=== PATIENT | female | born 1945 | race Caucasian/White ===

== ENCOUNTER 2017-11-10 17:42 | Inpatient (IN) ==
[2017-11-10] MEDS ORDERED: HYDROmorphone 2 MG/1 ML VIAL IV STA (18:12)
[2017-11-10] MEDS ORDERED: ASPIRIN 325 MG TABLET PO STA (18:12)
[2017-11-10] MEDS ORDERED: NITROGLYCERIN 2% OINT 1 INCH/GM PACK TOP STA (18:12)
[2017-11-10] MEDS ORDERED: ONDANSETRON 4 MG/2 ML VIAL IV STA (18:12)
[2017-11-10 18:40] LABS: Basophils % 0.3 % (0.0-0.8); Eosinophils # 0.2 10*3/uL (0.0-0.87); Eosinophils % 2.7 % (0.00-10.9); Hematocrit 41.7 VOL% (35.7-47.0); Hemoglobin 13.6 GM/DL (12.0-16.0); Immature Granulocytes % 0.2 %; Immature Granulocytes Absolute 0.01 #; Lymphocytes # 2.3 10*3/uL (1.4-4.0); Lymphocytes % 38.8 % (21.3-54.2); Mean Corpuscular HGB Conc 32.6 GM/DL (32-36); Mean Corpuscular Hemoglobin 30 PG (27-34); Mean Corpuscular Volume 93.1 FL (87-102); Mean Platelet Volume 10.8 FL (9.6-12.0); Monocytes # 0.5 10*3/uL (0.11-0.8); Monocytes % 8.2 % (1.7-12.7); Neutrophils # 2.9 10*3/uL (1.4-7.4); Neutrophils % 49.8 % (38.7-73.9); Platelet Count 207 T/CUMM (130-400); Red Blood Count 4.48 MC/CUMM (3.8-5.5); Red Cell Distribution Width 13.6 % (9.3-17.3); White Blood Count 5.8 T/CUMM (4-12)
[2017-11-10 18:55] LABS: INR 1.1
[2017-11-10 19:00] LABS: Alanine Aminotransferase 31 U/L (13-56); Albumin 3.5 G/DL (3.4-5.0); Alkaline Phosphatase 89 U/L (45-117); Aspartate Amino Transferase 23 U/L (0-37); Bilirubin,Total < 0.39 MG/DL (0.2-1.0); Blood Urea Nitrogen 10 MG/DL (7-18); Calcium 8.4 MG/DL (8.5-10.1); Glucose 115 MG/DL (74-106); Osmolality,Calculated 282.1 MOS/KG (273-304); Potassium 4.5 MMOL/L (3.5-5.1); Sodium 142 MMOL/L (136-145); Total Protein 6.6 G/DL (6.4-8.3)
[2017-11-10] MEDS ORDERED: MAGNESIUM SULF RIDER 4 GM in PREMIX 1 EACH IV PRN (22:08)
[2017-11-10] MEDS ORDERED: NITROGLYCERIN SL 0.4 MG TABLET SL PRN (22:08)
[2017-11-10] MEDS ORDERED: ELUXADOLINE 100 MG PO PRN (22:08)
[2017-11-10] MEDS ORDERED: ONDANSETRON 4 MG/2 ML VIAL IV PRN (22:08)
[2017-11-10] MEDS ORDERED: GLUCAGON 1 MG VIAL IM PRN (22:08)
[2017-11-10] MEDS ORDERED: cycloSPORINE OPH EMUL 1 VIAL BOTH EYES PRN (22:08)
[2017-11-10] MEDS ORDERED: DEXTROSE 50% 25 GM/50 ML VIAL IV PRN (22:08)
[2017-11-10] MEDS ORDERED: SODIUM CHLORIDE 0.9% 1,000 ML IV SCH (22:08)
[2017-11-10] MEDS ORDERED: POTASSIUM CHLORIDE 20 MEQ TABLET PO PRN (22:08)
[2017-11-10] MEDS ORDERED: MAGNESIUM SULF RIDER 2 GM in PREMIX 1 EACH IV PRN (22:08)
[2017-11-10] MEDS ORDERED: ENOXAPARIN 80 MG/0.8 ML SYRINGE SUBCUT SCH (22:30)
[2017-11-11 01:17] LABS: Basophils % 0.4 % (0.0-0.8); Eosinophils # 0.2 10*3/uL (0.0-0.87); Eosinophils % 3.2 % (0.00-10.9); Hematocrit 38.9 VOL% (35.7-47.0); Hemoglobin 12.7 GM/DL (12.0-16.0); Immature Granulocytes % 0.5 %; Immature Granulocytes Absolute 0.03 #; Lymphocytes # 1.9 10*3/uL (1.4-4.0); Lymphocytes % 33.6 % (21.3-54.2); Mean Corpuscular HGB Conc 32.6 GM/DL (32-36); Mean Corpuscular Hemoglobin 31 PG (27-34); Mean Corpuscular Volume 94.6 FL (87-102); Mean Platelet Volume 10.9 FL (9.6-12.0); Monocytes # 0.6 10*3/uL (0.11-0.8); Neutrophils # 2.9 10*3/uL (1.4-7.4); Neutrophils % 52.3 % (38.7-73.9); Platelet Count 199 T/CUMM (130-400); Red Blood Count 4.11 MC/CUMM (3.8-5.5); Red Cell Distribution Width 13.6 % (9.3-17.3); White Blood Count 5.6 T/CUMM (4-12)
[2017-11-11 01:40] LABS: Alanine Aminotransferase 29 U/L (13-56); Albumin 3.1 G/DL (3.4-5.0); Alkaline Phosphatase 84 U/L (45-117); Aspartate Amino Transferase 20 U/L (0-37); Bilirubin,Total < 0.39 MG/DL (0.2-1.0); Blood Urea Nitrogen 11 MG/DL (7-18); Calcium 8.6 MG/DL (8.5-10.1); Cholesterol 77 MG/DL (50-200); Glucose 105 MG/DL (74-106); HDL Cholesterol 42 MG/DL (40-60); Osmolality,Calculated 279.3 MOS/KG (273-304); Potassium 4.3 MMOL/L (3.5-5.1); Risk Ratio 1.83; Sodium 141 MMOL/L (136-145); Total Protein 6.4 G/DL (6.4-8.3); Triglycerides 130 MG/DL (2-150)
[2017-11-11] MEDS ORDERED: diphenhydrAMINE CAP 25 MG CAPSULE PO ONE (07:33)
[2017-11-11] MEDS ORDERED: DIAZEPAM 5 MG TABLET PO ONE (07:33)
[2017-11-11] MEDS: INSULIN REGULAR 100 UNIT/ML SUBCUT SCH ×4 (07:41→20:57)
[2017-11-11] MEDS ORDERED: PANTOPRAZOLE 40 MG TABLET PO SCH (09:00)
[2017-11-11] MEDS: MONTELUKAST 10 MG TABLET PO SCH (12:08)
[2017-11-11] MEDS: MAGNESIUM GLUCONATE 500 MG TABLET PO SCH (12:08)
[2017-11-11] MEDS: SERTRALINE 100 MG TABLET PO SCH (12:08)
[2017-11-11] MEDS: ROSUVASTATIN 10 MG TABLET PO SCH (12:08)
[2017-11-11] MEDS: ASPIRIN EC 81 MG TABLET PO SCH (12:08)
[2017-11-11] MEDS: PANTOPRAZOLE 40 MG TABLET PO SCH (12:08)
[2017-11-11] MEDS: CLOPIDOGREL 75 MG TABLET PO SCH (12:08)
[2017-11-11] MEDS ORDERED: LIDOCAINE 1% 20 ML VIAL ONE (12:35)
[2017-11-11] MEDS ORDERED: HEPARIN/NACL 0.9% 2 UNITS/ML 1,000 ML IV ONE (12:35)
[2017-11-11] MEDS ORDERED: MIDAZOLAM 2 MG/2 ML VIAL ONE (12:53)
[2017-11-11] MEDS ORDERED: fentaNYL 100 MCG/2 ML VIAL ONE (12:53)
[2017-11-11] MEDS ORDERED: ACETAMINOPHEN 325 MG TABLET PO PRN (13:18)
[2017-11-11] MEDS ORDERED: SODIUM CHLORIDE 0.9% 500 ML IV ONE (19:20)
[2017-11-11] MEDS ORDERED: SODIUM CHLORIDE 0.9% 1,000 ML IV ONE (19:34)
[2017-11-11] MEDS ORDERED: MORPHINE 4 MG/1 ML VIAL IV PRN (19:37)
[2017-11-11] MEDS ORDERED: SODIUM CHLORIDE 0.9% 250 ML IV ONE (19:40)
[2017-11-11 19:45] LABS: Basophils % 0.3 % (0.0-0.8); Eosinophils # 0.1 10*3/uL (0.0-0.87); Eosinophils % 1.1 % (0.00-10.9); Hematocrit 37.4 VOL% (35.7-47.0); Hemoglobin 12.1 GM/DL (12.0-16.0); Immature Granulocytes % 0.5 %; Immature Granulocytes Absolute 0.06 #; Lymphocytes # 3.9 10*3/uL (1.4-4.0); Mean Corpuscular HGB Conc 32.4 GM/DL (32-36); Mean Corpuscular Hemoglobin 31 PG (27-34); Mean Corpuscular Volume 95.4 FL (87-102); Mean Platelet Volume 10.8 FL (9.6-12.0); Monocytes % 7.4 % (1.7-12.7); Neutrophils % 60.7 % (38.7-73.9); Platelet Count 233 T/CUMM (130-400); Red Blood Count 3.92 MC/CUMM (3.8-5.5); Red Cell Distribution Width 13.6 % (9.3-17.3); White Blood Count 13.1 T/CUMM (4-12)
[2017-11-11 19:59] LABS: INR 1.1; Partial Thromboplastin Time 22.9 SECS (0-40)
[2017-11-11] MEDS: FEXOFENADINE 180 MG TABLET PO SCH (20:04)
[2017-11-11 20:05] LABS: Alanine Aminotransferase 26 U/L (13-56); Alkaline Phosphatase 77 U/L (45-117); Aspartate Amino Transferase 19 U/L (0-37); Bilirubin,Total < 0.39 MG/DL (0.2-1.0); Blood Urea Nitrogen 12 MG/DL (7-18); Calcium 8.7 MG/DL (8.5-10.1); Glucose 203 MG/DL (74-106); Osmolality,Calculated 284.4 MOS/KG (273-304); Potassium 4.5 MMOL/L (3.5-5.1); Sodium 140 MMOL/L (136-145)
[2017-11-12 04:11] LABS: INR 1.1; Partial Thromboplastin Time < 21.0 SECS (0-40)
[2017-11-12 04:42] LABS: Calcium 8.7 MG/DL (8.5-10.1); Osmolality,Calculated 283.3 MOS/KG (273-304); Potassium 4.9 MMOL/L (3.5-5.1)
[2017-11-12 05:33] LABS: Basophils % 0.1 % (0.0-0.8); Eosinophils # 0.1 10*3/uL (0.0-0.87); Eosinophils % 1.1 % (0.00-10.9); Hematocrit 36.7 VOL% (35.7-47.0); Hemoglobin 11.6 GM/DL (12.0-16.0); Immature Granulocytes % 0.4 %; Immature Granulocytes Absolute 0.03 #; Lymphocytes # 1.7 10*3/uL (1.4-4.0); Lymphocytes % 21.4 % (21.3-54.2); Mean Corpuscular HGB Conc 31.6 GM/DL (32-36); Mean Corpuscular Hemoglobin 31 PG (27-34); Mean Corpuscular Volume 96.6 FL (87-102); Mean Platelet Volume 10.7 FL (9.6-12.0); Monocytes # 0.7 10*3/uL (0.11-0.8); Monocytes % 8.5 % (1.7-12.7); Neutrophils # 5.4 10*3/uL (1.4-7.4); Neutrophils % 68.5 % (38.7-73.9); Platelet Count 206 T/CUMM (130-400); Red Cell Distribution Width 13.6 % (9.3-17.3); White Blood Count 7.9 T/CUMM (4-12)
[2017-11-12] MEDS: INSULIN REGULAR 100 UNIT/ML SUBCUT SCH ×4 (07:17→21:17)
[2017-11-12] MEDS ORDERED: ERGOCALCIFEROL 50,000 UNIT CAPSULE PO SCH (09:00)
[2017-11-12] MEDS: ROSUVASTATIN 10 MG TABLET PO SCH (09:30)
[2017-11-12] MEDS: SERTRALINE 100 MG TABLET PO SCH (09:31)
[2017-11-12] MEDS: MONTELUKAST 10 MG TABLET PO SCH (09:31)
[2017-11-12] MEDS: CLOPIDOGREL 75 MG TABLET PO SCH (09:31)
[2017-11-12] MEDS: NON-FORMULARY MEDICATION (Liraglutide [Victoza 2-Pak] 1.2 MG) SUBCUT SCH (09:31)
[2017-11-12] MEDS: ASPIRIN EC 81 MG TABLET PO SCH (09:31)
[2017-11-12] MEDS: FEXOFENADINE 180 MG TABLET PO SCH (09:31)
[2017-11-12] MEDS: PANTOPRAZOLE 40 MG TABLET PO SCH (09:31)
[2017-11-12] MEDS: MAGNESIUM GLUCONATE 500 MG TABLET PO SCH (09:31)
[2017-11-12] MEDS: NON-FORMULARY MEDICATION (Vit C/Vit E Ac/Lut/Copper/Zinc [Preservision Lutein Softgel] 1 E PO SCH (09:32)
[2017-11-13 05:10] LABS: Eosinophils # 0.1 10*3/uL (0.0-0.87); Eosinophils % 1.9 % (0.00-10.9); Hematocrit 31.3 VOL% (35.7-47.0); Hemoglobin 10.1 GM/DL (12.0-16.0); Immature Granulocytes % 0.4 %; Immature Granulocytes Absolute 0.02 #; Lymphocytes # 1.7 10*3/uL (1.4-4.0); Mean Corpuscular HGB Conc 32.3 GM/DL (32-36); Mean Corpuscular Hemoglobin 31 PG (27-34); Mean Corpuscular Volume 94.8 FL (87-102); Mean Platelet Volume 10.7 FL (9.6-12.0); Monocytes # 0.5 10*3/uL (0.11-0.8); Monocytes % 9.5 % (1.7-12.7); Neutrophils # 3.4 10*3/uL (1.4-7.4); Neutrophils % 59.2 % (38.7-73.9); Platelet Count 173 T/CUMM (130-400); Red Cell Distribution Width 13.4 % (9.3-17.3); White Blood Count 5.7 T/CUMM (4-12)
[2017-11-13 05:21] LABS: Calcium 8.2 MG/DL (8.5-10.1); Osmolality,Calculated 282.3 MOS/KG (273-304); Potassium 4.4 MMOL/L (3.5-5.1)
[2017-11-13] MEDS: INSULIN REGULAR 100 UNIT/ML SUBCUT SCH ×4 (08:38→22:33)
[2017-11-13] MEDS: CLOPIDOGREL 75 MG TABLET PO SCH (09:44)
[2017-11-13] MEDS: ASPIRIN EC 81 MG TABLET PO SCH (09:44)
[2017-11-13] MEDS: FEXOFENADINE 180 MG TABLET PO SCH (09:44)
[2017-11-13] MEDS: SERTRALINE 100 MG TABLET PO SCH (09:44)
[2017-11-13] MEDS: PANTOPRAZOLE 40 MG TABLET PO SCH (09:44)
[2017-11-13] MEDS: ROSUVASTATIN 10 MG TABLET PO SCH (09:44)
[2017-11-13] MEDS: MONTELUKAST 10 MG TABLET PO SCH (09:44)
[2017-11-13] MEDS: MAGNESIUM GLUCONATE 500 MG TABLET PO SCH (09:44)
[2017-11-13] MEDS: NON-FORMULARY MEDICATION (Vit C/Vit E Ac/Lut/Copper/Zinc [Preservision Lutein Softgel] 1 E PO SCH (09:45)
[2017-11-13] MEDS: NON-FORMULARY MEDICATION (Liraglutide [Victoza 2-Pak] 1.2 MG) SUBCUT SCH (09:47)
[2017-11-14 05:01] LABS: Basophils % 0.4 % (0.0-0.8); Eosinophils # 0.1 10*3/uL (0.0-0.87); Eosinophils % 1.8 % (0.00-10.9); Hematocrit 29.7 VOL% (35.7-47.0); Hemoglobin 9.4 GM/DL (12.0-16.0); Immature Granulocytes % 0.4 %; Immature Granulocytes Absolute 0.02 #; Lymphocytes # 1.6 10*3/uL (1.4-4.0); Lymphocytes % 30.8 % (21.3-54.2); Mean Corpuscular HGB Conc 31.6 GM/DL (32-36); Mean Corpuscular Hemoglobin 31 PG (27-34); Mean Corpuscular Volume 96.4 FL (87-102); Mean Platelet Volume 10.7 FL (9.6-12.0); Monocytes # 0.6 10*3/uL (0.11-0.8); Monocytes % 12.2 % (1.7-12.7); Neutrophils # 2.8 10*3/uL (1.4-7.4); Neutrophils % 54.4 % (38.7-73.9); Platelet Count 183 T/CUMM (130-400); Red Blood Count 3.08 MC/CUMM (3.8-5.5); Red Cell Distribution Width 13.4 % (9.3-17.3); White Blood Count 5.1 T/CUMM (4-12)
[2017-11-14 05:18] LABS: Calcium 7.9 MG/DL (8.5-10.1); Osmolality,Calculated 283.1 MOS/KG (273-304); Potassium 4.2 MMOL/L (3.5-5.1)
[2017-11-14 07:55] VITALS: BP 129/59
[2017-11-14] MEDS: ROSUVASTATIN 10 MG TABLET PO SCH (09:53)
[2017-11-14] MEDS: SERTRALINE 100 MG TABLET PO SCH (09:53)
[2017-11-14] MEDS: MONTELUKAST 10 MG TABLET PO SCH (09:53)
[2017-11-14] MEDS: FEXOFENADINE 180 MG TABLET PO SCH (09:53)
[2017-11-14] MEDS: INSULIN REGULAR 100 UNIT/ML SUBCUT SCH (09:53)
[2017-11-14] MEDS: PANTOPRAZOLE 40 MG TABLET PO SCH (09:53)
[2017-11-14] MEDS: MAGNESIUM GLUCONATE 500 MG TABLET PO SCH (09:53)
[2017-11-14] MEDS: CLOPIDOGREL 75 MG TABLET PO SCH (09:54)
[2017-11-14] MEDS: NON-FORMULARY MEDICATION (Liraglutide [Victoza 2-Pak] 1.2 MG) SUBCUT SCH (09:54)
[2017-11-14] MEDS: ASPIRIN EC 81 MG TABLET PO SCH (09:54)
[2017-11-14] MEDS: NON-FORMULARY MEDICATION (Vit C/Vit E Ac/Lut/Copper/Zinc [Preservision Lutein Softgel] 1 E PO SCH (09:55)
== END 2017-11-14 11:55 | disposition home or self-care (01) | DRG 287 ==
LOC: N.ED 17:42 → N.EDINP 21:45 → N.TELEN 22:16 → N.CC 11-11 19:58 → N.TELEN 11-12 11:07
PROVIDERS: ADMIT Internal Medicine Cardiovascular Disease; ATTEND Internal Medicine Cardiovascular Disease
PROC: CLCCHCL (ICD-10-PCS; 2017-11-11 13:15)

== ENCOUNTER 2018-04-10 07:02 | Observation (INO) ==
[2018-04-10] MEDS ORDERED: NITROGLYCERIN 2% OINT 1 INCH/GM PACK TOP STA (07:27)
[2018-04-10] MEDS ORDERED: KETOROLAC 30 MG/1 ML VIAL IV STA (07:27)
[2018-04-10] MEDS ORDERED: ALUM/MAG/SIMETH/LIDO VISC 1:1 30 ML BOTTLE PO STA (07:27)
[2018-04-10] MEDS ORDERED: ASPIRIN 325 MG TABLET PO STA (07:27)
[2018-04-10 08:14] LABS: Basophils % 0.2 % (0.0-0.8); Eosinophils % 0.8 % (0.00-10.9); Hematocrit 38.7 VOL% (35.7-47.0); Hemoglobin 12.7 GM/DL (12.0-16.0); Immature Granulocytes % 0.4 %; Immature Granulocytes Absolute 0.02 #; Lymphocytes # 1.4 10*3/uL (1.4-4.0); Lymphocytes % 27.8 % (21.3-54.2); Mean Corpuscular HGB Conc 32.8 GM/DL (32-36); Mean Corpuscular Hemoglobin 30 PG (27-34); Mean Corpuscular Volume 90.2 FL (87-102); Mean Platelet Volume 10.9 FL (9.6-12.0); Monocytes # 0.5 10*3/uL (0.11-0.8); Monocytes % 10.5 % (1.7-12.7); Neutrophils % 60.3 % (38.7-73.9); Platelet Count 218 T/CUMM (130-400); Red Blood Count 4.29 MC/CUMM (3.8-5.5); Red Cell Distribution Width 15.4 % (9.3-17.3); White Blood Count 4.9 T/CUMM (4-12)
[2018-04-10 08:22] LABS: INR 1.2; PT Patient Result 12.8 SECS; Partial Thromboplastin Time 27.2 SECS (0-40)
[2018-04-10 08:34] LABS: Bilirubin,Total 0.6 MG/DL (0.2-1.0); Calcium 8.3 MG/DL (8.5-10.1); Osmolality,Calculated 282.1 MOS/KG (273-304); Potassium 3.8 MMOL/L (3.5-5.1); Total Protein 6.2 G/DL (6.4-8.3)
[2018-04-10] MEDS ORDERED: MAGNESIUM SULF RIDER 4 GM in PREMIX 1 EACH IV PRN (09:04)
[2018-04-10] MEDS ORDERED: ZALEPLON 5 MG CAPSULE PO PRN (09:04)
[2018-04-10] MEDS ORDERED: ONDANSETRON 4 MG/2 ML VIAL IV PRN (09:04)
[2018-04-10] MEDS ORDERED: ACETAMINOPHEN 325 MG TABLET PO PRN (09:04)
[2018-04-10] MEDS ORDERED: MAGNESIUM SULF RIDER 2 GM in PREMIX 1 EACH IV PRN (09:04)
[2018-04-10] MEDS ORDERED: diphenhydrAMINE CAP 25 MG CAPSULE PO PRN (09:04)
[2018-04-10] MEDS ORDERED: DOCUSATE SODIUM 100 MG CAPSULE PO PRN (09:04)
[2018-04-10] MEDS ORDERED: CYCLOSPORINE OPH EMUL BOTH EYES PRN (10:41)
[2018-04-10] MEDS ORDERED: NITROGLYCERIN SL 0.4 MG TABLET SL PRN (10:41)
[2018-04-10] MEDS: LOPERAMIDE 2 MG CAPSULE PO PRN (21:10)
[2018-04-11] MEDS: LOPERAMIDE 2 MG CAPSULE PO PRN ×2 (00:43→07:05)
[2018-04-11 04:32] LABS: Basophils % 0.4 % (0.0-0.8); Eosinophils # 0.1 10*3/uL (0.0-0.87); Eosinophils % 1.3 % (0.00-10.9); Hematocrit 37.9 VOL% (35.7-47.0); Hemoglobin 12.2 GM/DL (12.0-16.0); Immature Granulocytes % 0.2 %; Immature Granulocytes Absolute 0.01 #; Lymphocytes # 1.7 10*3/uL (1.4-4.0); Lymphocytes % 38.1 % (21.3-54.2); Mean Corpuscular HGB Conc 32.2 GM/DL (32-36); Mean Corpuscular Hemoglobin 29 PG (27-34); Mean Corpuscular Volume 91.3 FL (87-102); Monocytes # 0.6 10*3/uL (0.11-0.8); Neutrophils # 2.1 10*3/uL (1.4-7.4); Platelet Count 210 T/CUMM (130-400); Red Blood Count 4.15 MC/CUMM (3.8-5.5); Red Cell Distribution Width 15.4 % (9.3-17.3); White Blood Count 4.5 T/CUMM (4-12)
[2018-04-11 04:49] LABS: Calcium 8.4 MG/DL (8.5-10.1); Osmolality,Calculated 282.1 MOS/KG (273-304); Potassium 3.6 MMOL/L (3.5-5.1)
[2018-04-11] MEDS ORDERED: LEVOTHYROXINE 25 MCG TABLET PO SCH (07:00)
[2018-04-11] MEDS ORDERED: PANTOPRAZOLE 40 MG TABLET PO SCH (07:30)
[2018-04-11 08:20] VITALS: BP 145/86
[2018-04-11] MEDS ORDERED: FEXOFENADINE 180 MG TABLET PO SCH (09:00)
[2018-04-11] MEDS ORDERED: NON-FORMULARY MEDICATION (Liraglutide [Victoza 2-Pak] 1.2 MG) SUBCUT SCH (09:00)
[2018-04-11] MEDS ORDERED: OMEGA 3 ACID ETHYL ESTERS 1 GM CAPSULE PO SCH (09:00)
[2018-04-11] MEDS ORDERED: SERTRALINE 100 MG TABLET PO SCH (09:00)
[2018-04-11] MEDS ORDERED: ELUXADOLINE 100 MG PO SCH (09:00)
[2018-04-11] MEDS ORDERED: MULTIVITAMIN (OCUVITE) TABLET PO SCH (09:00)
[2018-04-11] MEDS ORDERED: ASPIRIN EC 81 MG TABLET PO SCH (09:00)
[2018-04-11] MEDS ORDERED: MONTELUKAST 10 MG TABLET PO SCH (09:00)
[2018-04-11] MEDS ORDERED: ROSUVASTATIN 10 MG TABLET PO SCH (09:00)
[2018-04-11] MEDS ORDERED: MAGNESIUM OXIDE 400 MG TABLET PO SCH (09:00)
[2018-04-15] MEDS ORDERED: ERGOCALCIFEROL 50,000 UNIT CAPSULE PO SCH (09:00)
== END 2018-04-11 10:41 | disposition home or self-care (01) ==
LOC: N.EDINP 07:02 → N.ED 07:02 → N.2W 09:41 → N.TELES 11:51
PROVIDERS: ADMIT Internal Medicine Cardiovascular Disease; ATTEND Internal Medicine Cardiovascular Disease

== ENCOUNTER 2019-08-06 20:01 | Observation (INO) ==
[2019-08-06 20:52] LABS: Basophils % 0.4 % (0.0-0.8); Eosinophils # 0.1 10*3/uL (0.0-0.87); Eosinophils % 0.6 % (0.00-10.9); Hematocrit 44.6 VOL% (35.7-47.0); Hemoglobin 14.6 GM/DL (12.0-16.0); Immature Granulocytes % 0.3 %; Immature Granulocytes Absolute 0.02 #; Lymphocytes # 2.9 10*3/uL (1.4-4.0); Lymphocytes % 37.4 % (21.3-54.2); Mean Corpuscular HGB Conc 32.7 GM/DL (32-36); Mean Corpuscular Volume 91.2 FL (87-102); Monocytes % 6.9 % (1.7-12.7); Neutrophils % 54.4 % (38.7-73.9); Platelet Count 225 T/CUMM (130-400); Red Blood Count 4.89 MC/CUMM (3.8-5.5); Red Cell Distribution Width 13.5 % (9.3-17.3); White Blood Count 7.8 T/CUMM (4-12)
[2019-08-06 21:06] LABS: INR 1.2; PT Patient Result 13.1 SECS (9.8-11.9); Partial Thromboplastin Time 29.2 SECS (23.9-33.8)
[2019-08-06 21:07] LABS: Alanine Aminotransferase 32 U/L (13-56); Albumin 3.2 G/DL (3.4-5.0); Alkaline Phosphatase 119 U/L (45-117); Aspartate Amino Transferase 34 U/L (0-37); Blood Urea Nitrogen 9 MG/DL (7-18); Estimated Glom Filtration Rate 80 ML/MIN; Glucose 110 MG/DL (74-106); Osmolality,Calculated 274.7 MOS/KG (273-304); Total Protein 7.1 G/DL (6.4-8.3); Troponin I < 0.015 NG/ML (0.00-0.045)
[2019-08-06] MEDS ORDERED: SODIUM CHLORIDE 0.9% 1,000 ML IV STA (21:08)
[2019-08-06 23:34] LABS: Apearance,Urine Slightly Hazy (Clear); Bacteria,Urine Occasional /HPF (Few); Bilirubin,Urine Negative (Negative); Blood, Urine Small mg/dL (Negative); Glucose,Urine (UA) Negative (Negative); Hyaline Casts,Urine 1 /LPF (0-3); Ketones,Urine Negative (Negative); Mucus,Urine Moderate /LPF (Occasional); Nitrite,Urine Negative (Negative); Protein,Urine Negative; RBC,Urine 3 /HPF (0-4); Squamous Epithelial Cell,Urine Occasional /HPF (0-10); Urine Color Yellow (Yellow); Urine Urobilinogen < 2.0 EU/DL (0.2-1.0); WBC,Urine 3 /HPF (0-6)
[2019-08-06 23:38] LABS: Barbiturates Screen,Urine Negative (Negative); Benzodiazepines Screen,Urine Negative (Negative); Cannabinoid Screen,Urine Negative (Negative); Opiate Screen,Urine Negative (Negative); Phencyclidine Screen,Urine Negative (Negative)
[2019-08-06] MEDS ORDERED: LEVOFLOXACIN INJ 750 MG in PREMIX 1 EACH IV STA (23:54)
[2019-08-07] MEDS ORDERED: diphenhydrAMINE 50 MG/1 ML VIAL ONE (00:23)
[2019-08-07] MEDS ORDERED: diphenhydrAMINE 50 MG/1 ML VIAL IV STA (00:31)
[2019-08-07] MEDS ORDERED: SULFAMETHOX/TRIMETHOPRIM 800-160 MG TABLET PO STA (01:35)
[2019-08-07] MEDS ORDERED: ACETAMINOPHEN 325 MG TABLET PO PRN (03:44)
[2019-08-07] MEDS ORDERED: DEXTROSE 50% 25 GM/50 ML SYRINGE IV PRN (03:44)
[2019-08-07] MEDS ORDERED: ONDANSETRON 4 MG/2 ML VIAL IV PRN (03:44)
[2019-08-07] MEDS ORDERED: MAGNESIUM SULF RIDER 4 GM in PREMIX 1 EACH IV PRN (03:44)
[2019-08-07] MEDS ORDERED: GLUCAGON 1 MG VIAL IM PRN (03:44)
[2019-08-07] MEDS ORDERED: MAGNESIUM SULF RIDER 2 GM in PREMIX 1 EACH IV PRN (03:44)
[2019-08-07] MEDS ORDERED: cycloSPORINE OPH EMUL 1 VIAL BOTH EYES PRN (07:57)
[2019-08-07] MEDS: INSULIN LISPRO 100 UNIT/ML SUBCUT SCH ×4 (08:00→20:48)
[2019-08-07 08:22] LABS: Basophils % 0.3 % (0.0-0.8); Eosinophils % 0.6 % (0.00-10.9); Hemoglobin 14.9 GM/DL (12.0-16.0); Immature Granulocytes % 0.3 %; Immature Granulocytes Absolute 0.02 #; Lymphocytes % 30.9 % (21.3-54.2); Mean Corpuscular HGB Conc 32.4 GM/DL (32-36); Mean Corpuscular Volume 93.1 FL (87-102); Mean Platelet Volume 10.8 FL (9.6-12.0); Monocytes % 7.1 % (1.7-12.7); Neutrophils % 60.8 % (38.7-73.9); Platelet Count 208 T/CUMM (130-400); Red Blood Count 4.94 MC/CUMM (3.8-5.5); Red Cell Distribution Width 13.7 % (9.3-17.3); White Blood Count 6.5 T/CUMM (4-12)
[2019-08-07] MEDS ORDERED: ASPIRIN EC 81 MG TABLET PO SCH (09:00)
[2019-08-07] MEDS ORDERED: ROSUVASTATIN 10 MG TABLET PO SCH (09:00)
[2019-08-07 09:01] LABS: Calcium 8.9 MG/DL (8.5-10.1); Osmolality,Calculated 274.5 MOS/KG (273-304); Risk Ratio 3.31; Thyroid Stimulating Hormone 5.25 uIU/ml (0.358-3.74); VLDL CHOLESTEROL 30.8 MG/DL
[2019-08-07] MEDS: MULTIVITAMIN (OCUVITE) TABLET PO SCH (09:32)
[2019-08-07] MEDS: ROSUVASTATIN 20 MG TABLET PO SCH (09:32)
[2019-08-07] MEDS: MAGNESIUM OXIDE 400 MG TABLET PO SCH (09:32)
[2019-08-07] MEDS: SERTRALINE 100 MG TABLET PO SCH (09:33)
[2019-08-07] MEDS: MONTELUKAST 10 MG TABLET PO SCH (09:33)
[2019-08-07] MEDS: ENOXAPARIN 40 MG/0.4 ML SYRINGE SUBCUT SCH (09:33)
[2019-08-07] MEDS: ASPIRIN EC 81 MG TABLET PO SCH (09:33)
[2019-08-07] MEDS: OMEGA 3 ACID ETHYL ESTERS 1 GM CAPSULE PO SCH (09:33)
[2019-08-07] MEDS ORDERED: DICYCLOMINE 20 MG TABLET PO PRN (18:02)
[2019-08-07] MEDS: ELUXADOLINE 75 MG PO SCH (21:31)
[2019-08-08] MEDS ORDERED: LEVOTHYROXINE 25 MCG TABLET PO SCH (07:00)
[2019-08-08] MEDS ORDERED: LEVOTHYROXINE 50 MCG TABLET PO SCH (07:00)
[2019-08-08] MEDS ORDERED: PANTOPRAZOLE 40 MG TABLET PO SCH (07:30)
[2019-08-08 07:45] LABS: Basophils % 0.1 % (0.0-0.8); Eosinophils # 0.1 10*3/uL (0.0-0.87); Hematocrit 44.8 VOL% (35.7-47.0); Hemoglobin 14.9 GM/DL (12.0-16.0); Immature Granulocytes % 0.3 %; Immature Granulocytes Absolute 0.02 #; Lymphocytes # 2.1 10*3/uL (1.4-4.0); Lymphocytes % 29.8 % (21.3-54.2); Mean Corpuscular HGB Conc 33.3 GM/DL (32-36); Mean Corpuscular Volume 91.1 FL (87-102); Monocytes % 8.9 % (1.7-12.7); Neutrophils % 59.9 % (38.7-73.9); Platelet Count 210 T/CUMM (130-400); Red Blood Count 4.92 MC/CUMM (3.8-5.5); Red Cell Distribution Width 13.5 % (9.3-17.3); White Blood Count 7.2 T/CUMM (4-12)
[2019-08-08 08:31] VITALS: BP 131/67
[2019-08-08] MEDS: INSULIN LISPRO 100 UNIT/ML SUBCUT SCH ×2 (08:38→11:58)
[2019-08-08 08:58] LABS: Calcium 8.9 MG/DL (8.5-10.1); Osmolality,Calculated 274.5 MOS/KG (273-304)
[2019-08-08] MEDS: MAGNESIUM OXIDE 400 MG TABLET PO SCH (09:23)
[2019-08-08] MEDS: SERTRALINE 100 MG TABLET PO SCH (09:24)
[2019-08-08] MEDS: MONTELUKAST 10 MG TABLET PO SCH (09:24)
[2019-08-08] MEDS: OMEGA 3 ACID ETHYL ESTERS 1 GM CAPSULE PO SCH (09:24)
[2019-08-08] MEDS: MULTIVITAMIN (OCUVITE) TABLET PO SCH (09:24)
[2019-08-08] MEDS: ASPIRIN EC 81 MG TABLET PO SCH (09:24)
[2019-08-08] MEDS: ROSUVASTATIN 20 MG TABLET PO SCH (09:24)
[2019-08-08] MEDS: ENOXAPARIN 40 MG/0.4 ML SYRINGE SUBCUT SCH (09:24)
[2019-08-08] MEDS: ELUXADOLINE 75 MG PO SCH (09:29)
[2019-08-11] MEDS ORDERED: ERGOCALCIFEROL 50,000 UNIT CAPSULE PO SCH (07:57)
[2019-08-13] MEDS ORDERED: Semaglutide [Ozempic] 0.25 MG SUBCUT SCH (07:57)
== END 2019-08-08 11:37 | disposition home or self-care (01) ==
LOC: N.EDINP 20:01 → N.ED 20:01 → SUATTDRO 08-07 01:57 → N.TELEN 08-07 02:00
PROVIDERS: ADMIT Family Medicine; ATTEND Internal Medicine

== ENCOUNTER 2021-04-01 18:36 | Inpatient (IN) ==
[2021-04-01] MEDS ORDERED: SODIUM CHLORIDE 0.9% 500 ML IV STA (19:02)
[2021-04-01 20:04] LABS: Basophils % 0.2 % (0.0-0.8); Hematocrit 44.7 VOL% (35.7-47.0); Hemoglobin 14.2 GM/DL (12.0-16.0); Immature Granulocytes % 0.7 %; Immature Granulocytes Absolute 0.08 #; Lymphocytes % 8.4 % (21.3-54.2); Mean Corpuscular HGB Conc 31.8 GM/DL (32-36); Mean Corpuscular Volume 92.2 FL (87-102); Mean Platelet Volume 11.2 FL (9.6-12.0); Monocytes % 7.5 % (1.7-12.7); Neutrophils % 83.2 % (38.7-73.9); Platelet Count 154 T/CUMM (130-400); Red Blood Count 4.85 MC/CUMM (3.8-5.5); Red Cell Distribution Width 14.5 % (9.3-17.3); White Blood Count 11.5 T/CUMM (4-12)
[2021-04-01 20:17] LABS: INR 1.3; PT Patient Result 14.1 SECS (10.5-12.0)
[2021-04-01 20:48] LABS: Alanine Aminotransferase 21 U/L (13-56); Albumin 3.2 G/DL (3.4-5.0); Alkaline Phosphatase 86 U/L (45-117); Aspartate Amino Transferase 21 U/L (0-37); Blood Urea Nitrogen 14 MG/DL (7-18); Calcium 8.7 MG/DL (8.5-10.1); Carbon Dioxide 23 MMOL/L (21-32); Glucose 122 MG/DL (74-106); Osmolality,Calculated 271.1 MOS/KG (273-304); Potassium 4.4 MMOL/L (3.5-5.1); Sodium 135 MMOL/L (136-145); Total Protein 7.2 G/DL (6.4-8.2)
[2021-04-01 20:49] LABS: Estimated Glom Filtration Rate 0 ML/MIN
[2021-04-01 21:05] LABS: Bacteria,Urine Occasional /HPF (Few); Bilirubin,Urine Negative (Negative); Blood, Urine Negative (Negative); Glucose,Urine (UA) Negative (Negative); Ketones,Urine Negative (Negative); Mucus,Urine Occasional /LPF (Occasional); Nitrite,Urine Negative (Negative); Protein,Urine Negative; Squamous Epithelial Cell,Urine Occasional /HPF (0-10); Urine Appearance Slightly Hazy (Clear); Urine Color Yellow (Yellow); Urine Specific Gravity 1.014 (1.001-1.035); Urine Urobilinogen < 2.0 EU/DL (<2.0)
[2021-04-01 21:10] LABS: Barbiturates Screen,Urine Negative (Negative); Benzodiazepines Screen,Urine Negative (Negative); Cannabinoid Screen,Urine Negative (Negative); Opiate Screen,Urine Negative (Negative); Phencyclidine Screen,Urine Negative (Negative)
[2021-04-02] MEDS ORDERED: ACETAMINOPHEN 325 MG TABLET PO PRN (00:20)
[2021-04-02] MEDS ORDERED: ONDANSETRON 4 MG/2 ML VIAL IV PRN (00:20)
[2021-04-02] MEDS ORDERED: SODIUM CHLORIDE 0.9% 1,000 ML IV SCH (01:00)
[2021-04-02] MEDS: ALBUTEROL/IPRATROPIUM 3 ML NEB RESP TX SCH ×4 (01:07→19:55)
[2021-04-02] MEDS: DOXYCYCLINE HYCLATE INJ 100 MG in SODIUM CHLORIDE 0.9% 100 ML IV SCH ×2 (02:35→15:12)
[2021-04-02] MEDS: LEVOTHYROXINE 50 MCG TABLET PO SCH (06:35)
[2021-04-02 07:43] LABS: Basophils % 0.1 % (0.0-0.8); Hematocrit 44.1 VOL% (35.7-47.0); Hemoglobin 14.5 GM/DL (12.0-16.0); Immature Granulocytes % 0.4 %; Immature Granulocytes Absolute 0.03 #; Lymphocytes # 1.5 10*3/uL (1.4-4.0); Lymphocytes % 17.2 % (21.3-54.2); Mean Corpuscular HGB Conc 32.9 GM/DL (32-36); Mean Corpuscular Volume 90.6 FL (87-102); Mean Platelet Volume 10.8 FL (9.6-12.0); Monocytes % 9.1 % (1.7-12.7); Neutrophils % 73.2 % (38.7-73.9); Platelet Count 146 T/CUMM (130-400); Red Blood Count 4.87 MC/CUMM (3.8-5.5); Red Cell Distribution Width 14.3 % (9.3-17.3); White Blood Count 8.6 T/CUMM (4-12)
[2021-04-02] MEDS ORDERED: PREGABALIN 75 MG CAPSULE PO PRN (08:00)
[2021-04-02] MEDS: NON-FORMULARY MEDICATION (Mirabegron [Myrbetriq] 25 mg Tablet Extended Release 24 Hr) PO SCH (08:04)
[2021-04-02 08:05] LABS: Albumin 2.9 G/DL (3.4-5.0); Bilirubin,Total 0.6 MG/DL (0.20-1.00); Calcium 8.6 MG/DL (8.5-10.1); Potassium 3.8 MMOL/L (3.5-5.1); Risk Ratio 1.35; Total Protein 6.6 G/DL (6.4-8.2)
[2021-04-02] MEDS: ENOXAPARIN 40 MG/0.4 ML SYRINGE SUBCUT SCH (08:10)
[2021-04-02] MEDS: buPROPion XL 150 MG TABLET PO SCH (08:10)
[2021-04-02] MEDS: KETOCONAZOLE 2% CREAM 30 GM TUBE TOP SCH (08:11)
[2021-04-02] MEDS: POTASSIUM CHLORIDE 20 MEQ TABLET PO SCH ×2 (08:11→08:22)
[2021-04-02] MEDS: CHOLECALCIFEROL 1,000 UNIT TABLET PO SCH (08:11)
[2021-04-02] MEDS: SERTRALINE 100 MG TABLET PO SCH (08:11)
[2021-04-02] MEDS: PANTOPRAZOLE 40 MG TABLET PO SCH (08:11)
[2021-04-02] MEDS: ASPIRIN EC 81 MG TABLET PO SCH (08:11)
[2021-04-02] MEDS: FEXOFENADINE 180 MG TABLET PO SCH (08:11)
[2021-04-02] MEDS: MAGNESIUM OXIDE 400 MG TABLET PO SCH (08:11)
[2021-04-02] MEDS: MULTIVITAMIN (CENTRUM) TABLET PO SCH (08:11)
[2021-04-02] MEDS: CLOPIDOGREL 75 MG TABLET PO SCH (08:55)
[2021-04-02] MEDS: ROSUVASTATIN 20 MG TABLET PO SCH (08:55)
[2021-04-02] MEDS ORDERED: ROSUVASTATIN 10 MG TABLET PO SCH (09:00)
[2021-04-02] MEDS: BUDESONIDE 3 MG CAPSULE PO SCH (16:03)
[2021-04-03] MEDS: ALBUTEROL/IPRATROPIUM 3 ML NEB RESP TX SCH ×4 (01:02→19:35)
[2021-04-03] MEDS: DOXYCYCLINE HYCLATE INJ 100 MG in SODIUM CHLORIDE 0.9% 100 ML IV SCH ×2 (01:05→19:20)
[2021-04-03 05:07] LABS: Basophils % 0.2 % (0.0-0.8); Eosinophils % 0.6 % (0.00-10.9); Hematocrit 42.2 VOL% (35.7-47.0); Hemoglobin 13.8 GM/DL (12.0-16.0); Immature Granulocytes % 0.3 %; Immature Granulocytes Absolute 0.02 #; Lymphocytes # 1.5 10*3/uL (1.4-4.0); Lymphocytes % 22.7 % (21.3-54.2); Mean Corpuscular HGB Conc 32.7 GM/DL (32-36); Mean Corpuscular Volume 91.5 FL (87-102); Mean Platelet Volume 11.2 FL (9.6-12.0); Monocytes % 8.5 % (1.7-12.7); Neutrophils % 67.7 % (38.7-73.9); Platelet Count 141 T/CUMM (130-400); Red Blood Count 4.61 MC/CUMM (3.8-5.5); Red Cell Distribution Width 13.9 % (9.3-17.3); White Blood Count 6.4 T/CUMM (4-12)
[2021-04-03 05:28] LABS: Calcium 8.6 MG/DL (8.5-10.1); Osmolality,Calculated 273.7 MOS/KG (273-304); Potassium 3.8 MMOL/L (3.5-5.1)
[2021-04-03] MEDS: LEVOTHYROXINE 50 MCG TABLET PO SCH (05:31)
[2021-04-03] MEDS: MAGNESIUM OXIDE 400 MG TABLET PO SCH (10:51)
[2021-04-03] MEDS: MONTELUKAST 10 MG TABLET PO SCH (10:51)
[2021-04-03] MEDS: FEXOFENADINE 180 MG TABLET PO SCH (10:51)
[2021-04-03] MEDS: ASPIRIN EC 81 MG TABLET PO SCH (10:51)
[2021-04-03] MEDS: CHOLECALCIFEROL 1,000 UNIT TABLET PO SCH (10:51)
[2021-04-03] MEDS: ROSUVASTATIN 20 MG TABLET PO SCH (10:51)
[2021-04-03] MEDS: KETOCONAZOLE 2% CREAM 30 GM TUBE TOP SCH (10:52)
[2021-04-03] MEDS: CLOPIDOGREL 75 MG TABLET PO SCH (10:52)
[2021-04-03] MEDS: BUDESONIDE 3 MG CAPSULE PO SCH (10:52)
[2021-04-03] MEDS: POTASSIUM CHLORIDE 20 MEQ TABLET PO SCH (10:52)
[2021-04-03] MEDS: MULTIVITAMIN (CENTRUM) TABLET PO SCH (10:52)
[2021-04-03] MEDS: SERTRALINE 100 MG TABLET PO SCH (10:52)
[2021-04-03] MEDS: ENOXAPARIN 40 MG/0.4 ML SYRINGE SUBCUT SCH (10:52)
[2021-04-03] MEDS: buPROPion XL 150 MG TABLET PO SCH (10:53)
[2021-04-03] MEDS: NON-FORMULARY MEDICATION (Mirabegron [Myrbetriq] 25 mg Tablet Extended Release 24 Hr) PO SCH (10:53)
[2021-04-03] MEDS: PANTOPRAZOLE 40 MG TABLET PO SCH (10:53)
[2021-04-04] MEDS: ALBUTEROL/IPRATROPIUM 3 ML NEB RESP TX SCH ×4 (00:25→20:35)
[2021-04-04] MEDS: DOXYCYCLINE HYCLATE INJ 100 MG in SODIUM CHLORIDE 0.9% 100 ML IV SCH ×2 (02:02→14:26)
[2021-04-04] MEDS: LEVOTHYROXINE 50 MCG TABLET PO SCH (06:09)
[2021-04-04] MEDS: ENOXAPARIN 40 MG/0.4 ML SYRINGE SUBCUT SCH (06:09)
[2021-04-04] MEDS: buPROPion XL 150 MG TABLET PO SCH (08:49)
[2021-04-04] MEDS: ROSUVASTATIN 20 MG TABLET PO SCH (08:49)
[2021-04-04] MEDS: MONTELUKAST 10 MG TABLET PO SCH (08:50)
[2021-04-04] MEDS: ASPIRIN EC 81 MG TABLET PO SCH (08:50)
[2021-04-04] MEDS: CHOLECALCIFEROL 1,000 UNIT TABLET PO SCH (08:50)
[2021-04-04] MEDS: POTASSIUM CHLORIDE 20 MEQ TABLET PO SCH (08:50)
[2021-04-04] MEDS: MULTIVITAMIN (CENTRUM) TABLET PO SCH (08:50)
[2021-04-04] MEDS: SERTRALINE 100 MG TABLET PO SCH (08:51)
[2021-04-04] MEDS: BUDESONIDE 3 MG CAPSULE PO SCH (08:51)
[2021-04-04] MEDS: FEXOFENADINE 180 MG TABLET PO SCH (08:51)
[2021-04-04] MEDS: CLOPIDOGREL 75 MG TABLET PO SCH (08:51)
[2021-04-04] MEDS: MAGNESIUM OXIDE 400 MG TABLET PO SCH (08:51)
[2021-04-04] MEDS: PANTOPRAZOLE 40 MG TABLET PO SCH (08:51)
[2021-04-04] MEDS: NON-FORMULARY MEDICATION (Mirabegron [Myrbetriq] 25 mg Tablet Extended Release 24 Hr) PO SCH (08:52)
[2021-04-04] MEDS: KETOCONAZOLE 2% CREAM 30 GM TUBE TOP SCH (08:56)
[2021-04-04] MEDS: guaiFENesin/DM ER 600-30 MG TABLET PO SCH ×2 (14:26→20:47)
[2021-04-04] MEDS: ERTAPENEM 1,000 MG in SODIUM CHLORIDE 0.9% 100 ML IV SCH (15:27)
[2021-04-05] MEDS: ALBUTEROL/IPRATROPIUM 3 ML NEB RESP TX SCH ×4 (00:12→19:55)
[2021-04-05] MEDS: DOXYCYCLINE HYCLATE INJ 100 MG in SODIUM CHLORIDE 0.9% 100 ML IV SCH ×2 (01:54→15:15)
[2021-04-05] MEDS: ENOXAPARIN 40 MG/0.4 ML SYRINGE SUBCUT SCH (06:09)
[2021-04-05] MEDS: LEVOTHYROXINE 50 MCG TABLET PO SCH (06:09)
[2021-04-05] MEDS: POTASSIUM CHLORIDE 20 MEQ TABLET PO SCH (08:39)
[2021-04-05] MEDS: MULTIVITAMIN (CENTRUM) TABLET PO SCH (08:40)
[2021-04-05] MEDS: CHOLECALCIFEROL 1,000 UNIT TABLET PO SCH (08:40)
[2021-04-05] MEDS: FEXOFENADINE 180 MG TABLET PO SCH (08:40)
[2021-04-05] MEDS: guaiFENesin/DM ER 600-30 MG TABLET PO SCH ×2 (08:40→20:48)
[2021-04-05] MEDS: MAGNESIUM OXIDE 400 MG TABLET PO SCH (08:40)
[2021-04-05] MEDS: ROSUVASTATIN 20 MG TABLET PO SCH (08:40)
[2021-04-05] MEDS: buPROPion XL 150 MG TABLET PO SCH (08:40)
[2021-04-05] MEDS: ASPIRIN EC 81 MG TABLET PO SCH (08:40)
[2021-04-05] MEDS: MONTELUKAST 10 MG TABLET PO SCH (08:40)
[2021-04-05] MEDS: PANTOPRAZOLE 40 MG TABLET PO SCH (08:41)
[2021-04-05] MEDS: BUDESONIDE 3 MG CAPSULE PO SCH (08:41)
[2021-04-05] MEDS: SERTRALINE 100 MG TABLET PO SCH (08:41)
[2021-04-05] MEDS: CLOPIDOGREL 75 MG TABLET PO SCH (08:41)
[2021-04-05] MEDS: KETOCONAZOLE 2% CREAM 30 GM TUBE TOP SCH (08:42)
[2021-04-05] MEDS: NON-FORMULARY MEDICATION (Mirabegron [Myrbetriq] 25 mg Tablet Extended Release 24 Hr) PO SCH (10:24)
[2021-04-05] MEDS: ERTAPENEM 1,000 MG in SODIUM CHLORIDE 0.9% 100 ML IV SCH (17:03)
[2021-04-06] MEDS: ALBUTEROL/IPRATROPIUM 3 ML NEB RESP TX SCH ×4 (00:27→20:11)
[2021-04-06] MEDS: DOXYCYCLINE HYCLATE INJ 100 MG in SODIUM CHLORIDE 0.9% 100 ML IV SCH ×2 (01:29→14:08)
[2021-04-06] MEDS: ENOXAPARIN 40 MG/0.4 ML SYRINGE SUBCUT SCH (06:03)
[2021-04-06] MEDS: LEVOTHYROXINE 50 MCG TABLET PO SCH (06:03)
[2021-04-06] MEDS: MONTELUKAST 10 MG TABLET PO SCH (10:52)
[2021-04-06] MEDS: MULTIVITAMIN (CENTRUM) TABLET PO SCH (10:52)
[2021-04-06] MEDS: CHOLECALCIFEROL 1,000 UNIT TABLET PO SCH (10:52)
[2021-04-06] MEDS: SERTRALINE 100 MG TABLET PO SCH (10:53)
[2021-04-06] MEDS: ASPIRIN EC 81 MG TABLET PO SCH (10:53)
[2021-04-06] MEDS: MAGNESIUM OXIDE 400 MG TABLET PO SCH (10:53)
[2021-04-06] MEDS: ROSUVASTATIN 20 MG TABLET PO SCH (10:53)
[2021-04-06] MEDS: guaiFENesin/DM ER 600-30 MG TABLET PO SCH ×2 (10:54→21:26)
[2021-04-06] MEDS: PANTOPRAZOLE 40 MG TABLET PO SCH (10:54)
[2021-04-06] MEDS: POTASSIUM CHLORIDE 20 MEQ TABLET PO SCH (10:54)
[2021-04-06] MEDS: buPROPion XL 150 MG TABLET PO SCH (10:56)
[2021-04-06] MEDS: FEXOFENADINE 180 MG TABLET PO SCH (10:56)
[2021-04-06] MEDS: CLOPIDOGREL 75 MG TABLET PO SCH (10:57)
[2021-04-06] MEDS: NON-FORMULARY MEDICATION (Mirabegron [Myrbetriq] 25 mg Tablet Extended Release 24 Hr) PO SCH (10:58)
[2021-04-06] MEDS: BUDESONIDE 3 MG CAPSULE PO SCH (10:59)
[2021-04-06] MEDS: KETOCONAZOLE 2% CREAM 30 GM TUBE TOP SCH (11:02)
[2021-04-06] MEDS: ERTAPENEM 1,000 MG in SODIUM CHLORIDE 0.9% 100 ML IV SCH (16:24)
[2021-04-06] MEDS: DOXYCYCLINE HYCLATE 100 MG CAPSULE PO SCH (21:26)
[2021-04-06] MEDS: ASCORBIC ACID 500 MG TABLET PO SCH (21:26)
[2021-04-06] MEDS: METHENAMINE HIPPURATE 1 GM TABLET PO SCH (21:26)
[2021-04-07] MEDS: ALBUTEROL/IPRATROPIUM 3 ML NEB RESP TX SCH ×4 (00:35→07:19)
[2021-04-07] MEDS: LEVOTHYROXINE 50 MCG TABLET PO SCH (05:35)
[2021-04-07] MEDS: ENOXAPARIN 40 MG/0.4 ML SYRINGE SUBCUT SCH (09:47)
[2021-04-07] MEDS: SERTRALINE 100 MG TABLET PO SCH (09:47)
[2021-04-07] MEDS: FEXOFENADINE 180 MG TABLET PO SCH (09:47)
[2021-04-07] MEDS: PANTOPRAZOLE 40 MG TABLET PO SCH (09:47)
[2021-04-07] MEDS: BUDESONIDE 3 MG CAPSULE PO SCH (09:47)
[2021-04-07] MEDS: MAGNESIUM OXIDE 400 MG TABLET PO SCH (09:47)
[2021-04-07] MEDS: CHOLECALCIFEROL 1,000 UNIT TABLET PO SCH (09:48)
[2021-04-07] MEDS: DOXYCYCLINE HYCLATE 100 MG CAPSULE PO SCH (09:48)
[2021-04-07] MEDS: ASCORBIC ACID 500 MG TABLET PO SCH (09:49)
[2021-04-07] MEDS: guaiFENesin/DM ER 600-30 MG TABLET PO SCH (09:49)
[2021-04-07] MEDS: buPROPion XL 150 MG TABLET PO SCH (09:49)
[2021-04-07] MEDS: MONTELUKAST 10 MG TABLET PO SCH (09:49)
[2021-04-07] MEDS: MULTIVITAMIN (CENTRUM) TABLET PO SCH (09:49)
[2021-04-07] MEDS: POTASSIUM CHLORIDE 20 MEQ TABLET PO SCH (09:50)
[2021-04-07] MEDS: ROSUVASTATIN 20 MG TABLET PO SCH (09:50)
[2021-04-07] MEDS: METHENAMINE HIPPURATE 1 GM TABLET PO SCH (09:50)
[2021-04-07] MEDS: NON-FORMULARY MEDICATION (Mirabegron [Myrbetriq] 25 mg Tablet Extended Release 24 Hr) PO SCH (09:51)
[2021-04-07] MEDS: ASPIRIN EC 81 MG TABLET PO SCH (09:51)
[2021-04-07] MEDS: KETOCONAZOLE 2% CREAM 30 GM TUBE TOP SCH (09:52)
[2021-04-07 13:47] VITALS: BP 127/79
[2021-04-14] MEDS ORDERED: CYANOCOBALAMIN 1000 MCG/1 ML VIAL IM SCH (09:00)
== END 2021-04-07 15:51 | disposition swing bed (61) | DRG 689 ==
LOC: EDUNIT# → EDBD → N.EDINP 18:36 → N.ED 18:36 → SUATTDRO 04-02 00:20 → N.TELES 04-02 01:55 → SUATTDRO 04-02 08:20
PROVIDERS: ADMIT Internal Medicine; ATTEND Hospitalist